=== PATIENT | male | born 1950 | race Caucasian/White ===

== ENCOUNTER 2018-12-25 08:02 | Day surgery (SDC) | payer BC ==
[2018-12-22 11:41] LABS: BASO % 1.3 % (0-6); EOS % 2.7 % (0-6); GRAN % 44.6 % (47-80); HEMATOCRIT 52.4 % (42.0-52.0); HEMOGLOBIN 17.3 gm/dl (14.0-18.0); LYMPH % 42.1 % (16-45); MEAN CELL VOLUME 90.7 fl (81-97); MEAN CORPUSCULAR HEMOGLOBIN 29.9 pg (27-33); MEAN PLATELET VOLUME 9.6 fl (7.4-10.4); MONO % 9.3 % (0-9); PLATELET COUNT 298 K/uL (130-400); RED BLOOD COUNT 5.78 M/uL (4.40-5.70); RED CELL DISTRIBUTION WIDTH 12.5 % (11.5-14.5); WHITE BLOOD COUNT W/O DIFF 6.2 K/uL (4.2-12.2)
[2018-12-22 11:48] LABS: BLOOD UREA NITROGEN 11 mg/dL (8-23); EST GLOMERULAR FILTRATION RATE > 60 mL/min; GLUCOSE,RANDOM 106 mg/dL (74-109)
[~2018-12-25 08:02] MED LIST: ACETAMINOPHEN 1,000 MG/100 ML BTL IV ONE
[2018-12-25] MEDS ORDERED: PROPOFOL 10 MG/ML VIAL IV ONE (08:03)
[2018-12-25] MEDS ORDERED: ONDANSETRON HCL IV 4 MG/2 ML VIAL IVP ONE (08:03)
[2018-12-25] MEDS ORDERED: SEVOFLURANE 250 ML INH ONE (08:03)
[2018-12-25] MEDS ORDERED: KETOROLAC 30 MG/ML VIAL IVP ONE (08:03)
[2018-12-25] MEDS ORDERED: FENTANYL PF 100MCG/2ML VIAL IV ONE (08:03)
[2018-12-25] MEDS ORDERED: HYDROCODONE/APAP 7.5/325MG TABLET PO ONE (08:03)
[2018-12-25] MEDS ORDERED: DEXAMETHASONE 4 MG/ML 1ML VIAL IVP ONE (08:03)
[2018-12-25] MEDS ORDERED: MIDAZOLAM HCL 2MG/2ML VIAL IV ONE (08:03)
--- NOTE | 2018-12-26 08:20 | Operative Note ---
DATE OF SURGERY: 12/25/2018 Surgeon: Roel Cullen DO PREOPERATIVE DIAGNOSIS: Dupuytren contracture of the left palm and left little finger. POSTOPERATIVE DIAGNOSIS: Dupuytren contracture of the left palm and left little finger. OPERATION: Left palmar fasciectomy and left little finger using 3.5 loop magnification. DESCRIPTION OF PROCEDURE: This 68-year-old male was taken to the operating room and placed in the supine position on the operating room table. General anesthesia was induced. The left upper extremity was elevated. It was prepped with Hibiclens and draped in the usual sterile fashion. It was exsanguinated and the tourniquet inflated to 250 mmHg. A zigzag type palmar incision was made starting from approximately the level of the webspace of the thumb and a zigzag type incision was carried out down to the middle phalanx of the left little finger. Dissection was carried down through the skin and subcutaneous tissue. Some undermining of the skin was necessary to expose the thickened palmar fascial band. This was then circumferentially dissected off the flexor tendon of the left little finger and very gently it was elevated and sharply and bluntly dissected free from the level of the base of the webspace of the thumb to the PIP joint of the left little finger, which is where the attachment site was. The neurovascular bundles were protected both medially and laterally. After the band had been removed, we were able to get the little finger perfectly straight. It was irrigated with lactated Ringer's solution. We then released the tourniquet and hemostasis obtained with the electrocautery. The wound closed with interrupted 6-0 nylon suture. Sterile dressings with a plaster splint immobilization was applied with the ring and little finger in full extension and the wrist in slight dorsiflexion. The patient was then taken to the recovery room in satisfactory condition. GROSS PATHOLOGY: This patient had a very thick fibrous core extending from the level of the base of the webspace of the thumb at approximately the mid palm. This then ran over the top of the flexor tendon to the left little finger. We were careful to protect the neurovascular structures and this was dissected all the way down to just past the PIP joint. The patient had full range of motion of the MCP and PIP joints and the little finger was completely straight at the completion of the procedure. CC: DO LEOPOLDO Cheatham
== END 2018-12-25 11:35 | disposition home or self-care (01) ==
LOC: SUR 08:02
PROVIDERS: ATTEND Orthopaedic Surgery
DX: M72.0 Palmar fascial fibromatosis [Dupuytren] (principal); I10 Essential (primary) hypertension; E78.00 Pure hypercholesterolemia, unspecified; K21.9 Gastro-esophageal reflux disease without esophagitis
CPT/HCPCS: 26123; 01810; 85025; 80048; J1885; J2405; J3010

== ENCOUNTER 2019-05-18 09:09 | Day surgery (SDC) | payer BC ==
[2019-05-18] MEDS ORDERED: PROPOFOL 10 MG/ML VIAL IV ONE (09:10)
[2019-05-18] MEDS ORDERED: LIDOCAINE 2% MDV (20MG/ML) 20ML VIAL IV ONE (09:10)
--- NOTE | 2019-05-18 14:10 | Operative Note ---
OPERATION: COLONOSCOPY to the cecum. INDICATION: History of adenomatous polyp removed by my associate 5 years ago. He returns at this time for surveillance. ANESTHESIA: Intravenous sedation was administered by the department of anesthesiology and included Diprivan titrated to effect. PROCEDURE: Following informed consent from this alert individual including a discussion of the risks and benefits of the procedure and an opportunity for the patient to ask questions, the patient was in the left lateral decubitus position. A digital rectal examination was performed. No abnormalities were noted. Following this, the Olympus HOL193 video colonoscope was inserted into the rectum without resistance. The rectal mucosa had a normal appearance with normal folds and distensibility. The colonoscope was advanced up through the colon to the level of the cecum without much difficulty. In the sigmoid colon, there were a few scattered diverticula noted. No other changes were appreciated on antegrade or retrograde inspection. The cecum was well defined by noting the appendiceal orifice and ileocecal valve. The colon preparation overall was gastric outlet obstruction. Retroflexion in the rectum was endoscopically unremarkable. The instrument was straightened and withdrawn. The patient tolerated the procedure well and was returned to the recovery area in stable condition. IMPRESSION: 1. Sigmoid diverticulosis. 2. Otherwise unremarkable colonoscopy to the cecum. RECOMMENDATIONS: The patient was advised to have surveillance colonoscopy in 5 years' time or sooner if problems arise. Followup will otherwise be with Isaiah Douglas DO. As always, thank you for allowing me to participate in the care of your patient. CC: DO LEOPOLDO Cheatham
== END 2019-05-18 11:30 | disposition home or self-care (01) ==
LOC: HOP 09:09
PROVIDERS: ATTEND Internal Medicine Gastroenterology
DX: Z12.11 Encounter for screening for malignant neoplasm of colon (principal); Z12.12 Encounter for screening for malignant neoplasm of rectum; K57.30 Diverticulosis of large intestine without perforation or abscess without bleeding; Z86.010 Personal history of colon polyps; I10 Essential (primary) hypertension; E78.00 Pure hypercholesterolemia, unspecified; K21.9 Gastro-esophageal reflux disease without esophagitis; M19.90 Unspecified osteoarthritis, unspecified site
CPT/HCPCS: 00812; G0105